=== PATIENT | female | born 1975 | race Caucasian/White ===

== ENCOUNTER 2021-08-19 06:39 | Day surgery (SDC) | payer BC ==
[~2021-08-19 06:39] MED LIST: Sodium Chloride 0.9% 10 ML SDV IV PRN; Sodium Chloride 0.9% 10 ML Syringe FLUSH PRN; Sodium Chloride 0.9% 2.5 ML Syringe FLUSH PRN; ceFAZolin 1 GM in Premix Bag 1 BAG IV ONE
[2021-08-19] MEDS ORDERED: Scopolamine 1.5 MG Transdermal Patch ONE (06:50)
[2021-08-19] MEDS ORDERED: Metoclopramide 10 MG/2 ML SDV IVPUSH PRN (06:53)
[2021-08-19] MEDS ORDERED: Naloxone 0.4 MG/ML SDV IVPUSH PRN (06:53)
[2021-08-19] MEDS ORDERED: Ondansetron 4 MG/2 ML SDV IVPUSH PRN ×2 (06:53→10:09)
[2021-08-19] MEDS ORDERED: Albuterol 0.083% 2.5 MG/3 ML Neb Soln NEB PRN (06:53)
[2021-08-19] MEDS ORDERED: fentaNYL 100 MCG/2 ML SDV IVPUSH PRN (06:53)
[2021-08-19] MEDS ORDERED: HYDROmorphone 1 MG/ML Syringe IVPUSH PRN (06:53)
[2021-08-19] MEDS ORDERED: Morphine 2 MG/ML SYRINGE IVPUSH PRN (06:53)
--- NOTE | 2021-08-19 07:26 | PCM.PREANE ---
Preanesthetic Assessment - Anesthesia/Transfusion/Family Hx Anesthesia History: Prior Anesthesia Without Reaction Transfusion History: Prior Transfusion Without Reaction Type of Transfusion Reactions: Reports: Other (see below) Other Type of Transfusion Reaction: iron infusions, last on 08/12/21 - Review of Systems General: No Symptoms Pulmonary: No Symptoms Cardiovascular: No Symptoms Gastrointestinal: No Symptoms Neurological: No Symptoms Other: Reports: None - Physical Assessment NPO Status Date: 08/19/21 NPO Status Time: 00:00 Height: 5 ft 4.5 in Weight: 204 lb ASA Class: 2 Mental Status: Alert & Oriented x3 Airway Class: Mallampati = 2 Dentition: Reports: Normal Dentition Thyro-Mental Finger Breadths: 3 Mouth Opening Finger Breadths: 3 ROM/Head Extension: Full Lungs: Clear to Auscultation, Normal Respiratory Effort Cardiovascular: Regular Rate, Regular Rhythm - Lab Values: Laboratory Last Values SARS-CoV-2 RNA (AJ) NEGATIVE (NEGATIVE) 08/19/21 06:10 - Allergies Allergies/Adverse Reactions: Allergies Allergy/AdvReac Type Severity Reaction Status Date / Time No Known Allergies Allergy Verified 08/15/21 08:15 - Acknowledgements Anesthesia Type Planned: General Anesthesia Pt an Appropriate Candidate for the Planned Anesthesia: Yes Alternatives and Risks of Anesthesia Discussed w Pt/Guardian: Yes Pt/Guardian Understands and Agrees with Anesthesia Plan: Yes PreAnesthesia Questionnaire HEENT History: Reports: Other (See Below) Other HEENT History: wears glasses Cardiovascular History: Reports: Hypertension Respiratory History: Reports: None Gastrointestinal History: Reports: None Genitourinary History: Reports: UTI, Recurrent [employer] History: Reports: Fibroids, Polycystic Ovaries, Musculoskeletal History: Reports: None Neurological History: Reports: Migraines Psychiatric History: Reports: None Endocrine/Metabolic History: Reports: Obesity/BMI 30+, Other (See Below) Other Endocrine/Metabolic History: "prediabetic" Hematologic History: Reports: Iron Deficiency Immunologic History: Reports: None Oncologic (Cancer) History: Reports: None Dermatologic History: Reports: None - Past Surgical History Head Surgeries/Procedures: Reports: None HEENT Surgical History: Reports: None Cardiovascular Surgical History: Reports: None Respiratory Surgical History: Reports: None GI Surgical History: Reports: None Female Surgical History: Reports: Section, Tubal Ligation Endocrine Surgical History: Reports: None Neurological Surgical History: Reports: None Musculoskeletal Surgical History: Reports: Other (See Below) Other Musculoskeletal Surgeries/Procedures:: excision of ganglion cyst-left wrist Oncologic Surgical History: Reports: None Dermatological Surgical History: Reports: None - SUBSTANCE USE Tobacco Use Status *Q: Former Tobacco User Tobacco Use Within Last Twelve Months: No - HOME MEDS Home Medications: Home Meds Acetaminophen [Tylenol] 2 tab PO ASDIRECTED PRN 08/15/21 [History] Lisinopril/Hydrochlorothiazide [Lisinopril-Hctz 20-25 mg Tab] 1 tab PO DAILY 08/15/21 [History] Metoprolol Tartrate 50 mg PO BID 08/15/21 [History] - CURRENT (IN HOUSE) MEDS Current Meds: Current Medications Albuterol (Albuterol 0.083% 2.5 Mg/3 Ml Neb Soln) 2.5 mg NEB ONETIME PRN PRN Reason: Wheezing Droperidol (Droperidol 5 Mg/2 Ml Sdv) 0.625 mg IVPUSH ONETIME PRN PRN Reason: Nausea/Vomiting Fentanyl (Fentanyl 100 Mcg/2 Ml Sdv) 50 mcg IVPUSH Q5M PRN PRN Reason: Pain (mild 1-3) Hydromorphone HCl (Hydromorphone 1 Mg/Ml Syringe) 1 mg IVPUSH Q10M PRN PRN Reason: Pain (moderate 4-6) Metoclopramide HCl (Metoclopramide 10 Mg/2 Ml Sdv) 10 mg IVPUSH ONETIME PRN PRN Reason: Nausea/Vomiting Morphine Sulfate (Morphine 2 Mg/Ml Syringe) 2 mg IVPUSH Q10M PRN PRN Reason: Pain (severe 7-10) Naloxone HCl (Naloxone 0.4 Mg/Ml Sdv) 0.1 mg IVPUSH ASDIRECTED PRN PRN Reason: Respiratory Depression Ondansetron HCl (Ondansetron 4 Mg/2 Ml Sdv) 4 mg IVPUSH ONETIME PRN PRN Reason: Nausea/Vomiting Sodium Chloride (Sodium Chloride 0.9% 10 Ml Syringe) 10 ml FLUSH ASDIRECTED PRN PRN Reason: Keep Vein Open Sodium Chloride (Sodium Chloride 0.9% 2.5 Ml Syringe) 2.5 ml FLUSH ASDIRECTED PRN PRN Reason: Keep Vein Open Sodium Chloride (Sodium Chloride 0.9% 10 Ml Sdv) 10 ml IV ASDIRECTED PRN PRN Reason: IV Use Discontinued Medications Cefazolin Sodium/Dextrose 1 gm (/ Premix) 50 mls @ 100 mls/hr IV ONETIME ONE Stop: 08/19/21 05:29 Scopolamine (Scopolamine 1.5 Mg Transdermal Patch) Confirm Administered Dose 1.5 mg .ROUTE .STK-MED ONE Stop: 08/19/21 06:51
[2021-08-19 07:34] LABS: BLOOD UREA NITROGEN,BUN 13 mg/dL (7.0-18.0); CARBON DIOXIDE,CO2 24.9 mmol/L (21.0-32.0); CHLORIDE,CL 102 mmol/L (98-107); GLUCOSE RANDOM 324 mg/dL (74-106); POTASSIUM,K 3.8 mmol/L (3.5-5.1); SODIUM,NA 138 mmol/L (136-145)
[2021-08-19] MEDS ORDERED: Octyl 2-Cyanoacrylate 1 Tube ONE (07:40)
[2021-08-19] MEDS ORDERED: Methylene Blue 50 MG/10 ML Ampule ONE (07:40)
[2021-08-19] MEDS ORDERED: Fluorescein 5 ML Vial ONE (07:40)
[2021-08-19] MEDS ORDERED: Bupivacaine 0.25% 10 ML SDV ONE (07:40)
[2021-08-19] MEDS ORDERED: Propofol 200 MG/20 ML SDV ONE (07:42)
[2021-08-19] MEDS ORDERED: fentaNYL 100 MCG/2 ML SDV ONE ×2 (07:42→09:55)
[2021-08-19] MEDS ORDERED: Rocuronium Bromide 50 MG/5 ML Syringe ONE ×2 (07:42→08:57)
[2021-08-19] MEDS ORDERED: Dexmedetomidine 200 MCG/2 ML SDV ONE (07:42)
[2021-08-19] MEDS ORDERED: Sugammadex Sodium 200 MG/2 ML VIAL ONE (07:42)
[2021-08-19] MEDS ORDERED: Lidocaine 2% 5 ML SDV ONE (07:42)
[2021-08-19] MEDS ORDERED: Midazolam 1 MG/ML 2 ML SDV ONE (07:42)
[2021-08-19] MEDS ORDERED: Dexamethasone 4 MG/ML 5 ML MDV ONE (07:42)
[2021-08-19] MEDS ORDERED: Ondansetron 4 MG/2 ML SDV ONE (07:42)
[2021-08-19] MEDS ORDERED: Ketorolac 30 MG/ML SDV ONE (07:42)
[2021-08-19] MEDS ORDERED: Sodium Chloride 0.9% 20 ML ONE (07:45)
[2021-08-19] MEDS ORDERED: Ketamine 500 mg/10 ML MDV ONE (08:29)
[2021-08-19] MEDS ORDERED: Furosemide 40 MG/4 ML VIAL ONE (09:36)
[2021-08-19] MEDS ORDERED: Ketorolac 30 MG/ML SDV IVPUSH PRN (10:09)
[2021-08-19] MEDS ORDERED: Promethazine 25 MG/ML SDV IM PRN (10:09)
[2021-08-19] MEDS ORDERED: Morphine 4 MG/ML Syringe IVPUSH PRN (10:09)
[2021-08-19] MEDS ORDERED: Ketorolac 30 MG/ML SDV IVPUSH ONE (10:09)
[2021-08-19] MEDS ORDERED: Belladonna Alkaloids/Opium 16.2-30 MG Supp RECTAL PRN (10:09)
--- NOTE | 2021-08-19 10:25 | PCM.OPNOTE ---
- General Post-Op/Procedure Note Date of Surgery/Procedure: 08/19/21 Operative Procedure(s): LAVH/RSO/left salpingectomy/cystoscopy Findings: Boggy enlarged uterus--severe right sided pelvic congestion with dilated vessels. Normal appearing right ovary, left with multiple adhesions and congestion. Bilateral patent ureters. Pre Op Diagnosis: Menometrorrhagia Post-Op Diagnosis: Same Anesthesia Technique: General ET Tube Primary Surgeon: Elvira Blackwell Diversional Therapist'S Assistant: Georgette Moore Pathology: uterus, bilateral fallopian tubes, right ovary Fluid Replacement, Intraop: 1,200 EBL in mLs: 150 Complications: none known Condition: Stable Free Text/Narrative:: Dictation [id number]
--- NOTE | 2021-08-19 10:58 | PCM.POSTAN ---
POST ANESTHESIA ASSESSMENT - MENTAL STATUS Mental Status: Oriented, Somnolent - VITAL SIGNS Vital Signs: Last Vital Signs Temp 97.5 F 08/19/21 10:10 Pulse 92 08/19/21 10:55 Resp 17 08/19/21 10:55 BP 153/82 H 08/19/21 10:55 Pulse Ox 96 08/19/21 10:55 - RESPIRATORY Respiratory Status: Respiratory Rate WNL, Airway Patent, O2 Saturation Stable - CARDIOVASCULAR CV Status: Pulse Rate WNL, Blood Pressure Stable - GASTROINTESTINAL GI Status: No Symptoms - POST OP HYDRATION Hydration Status: Adequate & Stable
--- NOTE | 2021-08-19 11:01 | PCM48HPAN ---
Post Anesthesia Note - EVALUATION WITHIN 48HRS OF ANESTHETIC Vital Signs in Normal Range: Yes Patient Participated in Evaluation: Yes Respiratory Function Stable: Yes Airway Patent: Yes Cardiovascular Function Stable: Yes Hydration Status Stable: Yes Pain Control Satisfactory: Yes Nausea and Vomiting Control Satisfactory: Yes Mental Status Recovered: Yes Vital Signs: Last Vital Signs Temp 97.5 F 08/19/21 10:10 Pulse 92 08/19/21 10:55 Resp 17 08/19/21 10:55 BP 153/82 H 08/19/21 10:55 Pulse Ox 96 08/19/21 10:55
[2021-08-19] MEDS: Simethicone 80 MG Tab.Chew PO SCH ×2 (14:56→16:42)
[2021-08-19] MEDS: Acetaminophen/oxyCODONE 325-5 MG Tab PO PRN ×2 (15:13→20:13)
--- NOTE | 2021-08-19 17:02 | OR ---
SURGEON: Elvira Blackwell M.D. DATE OF PROCEDURE: 08/19/2021 PREOPERATIVE DIAGNOSIS: Menometrorrhagia. POSTOPERATIVE DIAGNOSIS: Menometrorrhagia. PROCEDURES: Laparoscopic-assisted vaginal hysterectomy, right salpingo-oophorectomy, left salpingectomy, and cystoscopy. PRIMARY SURGEON: Elvira Blackwell M.D. MONUMENT CARVER: MD Oscar ANESTHESIA: General endotracheal anesthesia. FLUIDS: 1200 mL of crystalloid. ESTIMATED BLOOD LOSS: 150 mL. COMPLICATIONS: None known. FINDINGS: Boggy enlarged uterus. Severe right-sided pelvic congestion with dilated vessels. Right ovarian adhesions. Normal-appearing bladder with patent ureters visualized on cystoscopy. DISPOSITION: The patient to PACU. SPECIMENS: To Pathology. PROCEDURE DETAILS: Lindsay is a 45-year-old female who has had ongoing difficulty with menometrorrhagia. At the time of first evaluation, endometrial biopsy was benign. Pap was normal. Her hemoglobin was found to be 7.5, therefore, she underwent iron transfusions, and we were able to normalize her hemoglobin to 12. She is ready to proceed with definitive intervention from hysterectomy. Risks of procedure have been discussed. Proper consent obtained. She does have intermittent pelvic pain. It is fairly severe at times. It tends to be more left-sided, so the discussion was to look at the left side and perhaps remove the left ovary. However, we left the consent open-ended as because if one side appears visually quite worse than the other, of course we will remove the more abnormal side, but we will try to maintain 1 ovary for hormone purposes. Proper consent was obtained. Patient was taken to the operating room, was placed in dorsal supine position, and underwent general endotracheal anesthesia. She was then replaced into a modified dorsal lithotomy position, was prepped and draped in the usual sterile manner. SCDs to the lower extremities. Sahni to gravity, and bladder was backfilled with methylene blue. Arms were tucked. A time-out was performed. A speculum was introduced in vagina. Anterior lip of cervix was grasped with a tenaculum. A HUMI uterine manipulator was now gently placed. Balloon insufflated. All instruments other than the manipulator were now removed from the vagina. Gloves changed. Attention turned abdominally. Infraumbilically, 0.25% Marcaine was introduced, and a 5 mm infraumbilical incision was created in midline sagittal, and anterior abdominal wall tented upwards while long Veress needle was introduced into the abdominal cavity. Saline hanging drop test was performed. Pneumoperitoneum was achieved. Veress needle was removed. Trocar was introduced. Laparoscope and peritoneal contents were identified. Right and left lower quadrant trocars were now introduced under direct visualization after prepping these regions with 0.25% Marcaine and creating 5 mm skin incisions. The uterus was mobile, and it was slightly enlarged and bulky. The left tube and ovary appeared normal. Overall, the tubes has had a previous partial salpingectomy. However, the right side of the pelvis was very congested with ovarian adhesions noted. Therefore, given our previous discussion, I am opting to remove the right ovary and tube and to leave the left ovary as this appeared to be more normal. I was able to see ureters peristalsing deep in the pelvis well away from operative field. Attention was turned to the patient's left side. The left fallopian tube was now excised to the level of the cornua using LigaSure and then secured the utero- tuboovarian pedicle down through the broad ligament, then through the broad ligament incorporating the round ligament, and down the level of the cardinal pedicle. I was able to secure through the cardinal pedicle with LigaSure, cauterize and transect. Anteriorly, the peritoneum was now dissected with LigaSure, and bladder was mobilized away from lower uterine segment and cervix. Attention now turned to the patient's right side with care due to the pelvic congestion. I was able to isolate the tubo-ovarian complex. Using LigaSure, I was able to secure the infundibulopelvic ligament, cauterize and transect through the level of the broad ligament, down through the round ligament, to the base of the broad ligament, and to the cardinal ligament. Hydrodissection was performed to mobilize the bladder further away from the lower uterine segment, cervix, and then the remainder of pedicle on the right side was able to be secured using LigaSure. At this juncture, I was able to release pneumoperitoneum. Laparoscopic instruments were removed other than the trocars. Attention was turned vaginally. The patient's hips and knees were flexed. I did have to slightly reposition her on the table to bring the buttocks down further. She tolerated this well. I was able to introduce a weighted speculum, anterior Ana, and sidewall retractors. Cervix was grasped with a Dede clamp. The cervix was circumscribed with Bovie cautery. The posterior aspect of the cervix at this time did not mobilize easily. A second Dede clamp was placed and tented this down. I was able to circumscribed this mucosa as well. Posteriorly, the mucosa was dissected away from underlying peritoneum. Peritoneum was tented downwards and entered sharply. Longer weighted speculum was replaced with shorter. Anteriorly, the peritoneum was tented upwards and entered sharply. The Ana was placed to mobilize the bladder away from operative field, and the bladder was drained. Uterosacral ligament on either side was secured with Cindy clamp, transected, and suture ligated with 2-0 Vicryl. A further pedicle on the left side was able to be secured, transected, and suture ligated. Two further pedicles on the right side were able to be secured, transected, and suture ligated. At this point, the uterus was free and upon trying to remove from the pelvis did not easily deliver, did have to morcellate the posterior aspect of the uterus in order to allow the uterus to be delivered through the pelvis. The specimen would be sent to Pathology for further analysis. It included the right tube and ovary, the left fallopian tube, uterus, and cervix. A packing lap was now gently placed. Pedicles were inspected. The uterosacral ligaments on either side were secured to the vaginal apex with 2-0 Vicryl. The pedicles appeared hemostatic. Pack was now removed. The cuff was closed using 0 Vicryl in continuous running locked fashion. Hemostasis appeared evident. Sahni balloon was now deflated, and Sahni catheter was removed. Cystoscope was introduced using normal saline as distention media. I was able to visualize the dome of the bladder, followed by the trigone. IV fluorescein had been introduced in the right ureteral orifice followed by the left ureteral orifice, which were able to be visualized, and fluorescein-dyed urine was seen streaming from them with good jets helping to ensure ureteral patency. The bladder was now drained. The Sahni catheter was replaced. Cystoscope had been removed. The vaginal cuff once again inspected, found to be hemostatic. Gloves changed. Attention turned abdominally. Pneumoperitoneum once again achieved. The pelvis was closely inspected along with the pedicles. Region was well irrigated and suction dried. Pedicles appeared hemostatic. Relief pressure decreased to 8 mmHg. Hemostasis appeared evident. Therefore, pneumoperitoneum was able to be released. Laparoscopic instruments removed followed by removal of trocars at the right and left lower quadrant under direct visualization followed by removal of laparoscope and infraumbilical trocar. Skin edges were reapproximated using 3-0 Monocryl in subcuticular fashion. Sponge, instrument, and needle counts were correct x2. The patient tolerated the procedure well overall. She will go to PACU in stable condition. Specimen to Pathology. STUART / SCARLETT /[id number]
--- NOTE | 2021-08-19 17:57 | PCM.SN.2 ---
- Free Text/Narrative Note: Patient is doing well overall. Explained procedure and intraoperative findings. Blood pressure mildly elevated, will monitor--otherwise VS are stable and urine output is good. Continue postoperative cares. Time Documentation
[2021-08-19] MEDS: Docusate Sodium 100 MG Cap PO SCH (20:09)
[2021-08-20] MEDS: Acetaminophen/oxyCODONE 325-5 MG Tab PO PRN ×2 (01:23→08:30)
[2021-08-20] MEDS: Simethicone 80 MG Tab.Chew PO SCH (06:38)
[2021-08-20 07:27] LABS: BLOOD UREA NITROGEN,BUN 14 mg/dL (7.0-18.0); CARBON DIOXIDE,CO2 24.6 mmol/L (21.0-32.0); CHLORIDE,CL 104 mmol/L (98-107); GLUCOSE RANDOM 265 mg/dL (74-106); POTASSIUM,K 3.9 mmol/L (3.5-5.1); SODIUM,NA 138 mmol/L (136-145)
[2021-08-20] MEDS: Docusate Sodium 100 MG Cap PO SCH (08:32)
--- NOTE | 2021-08-20 10:10 | PCM.SURGPN ---
- General Info Date of Service: 08/20/21 POD#: 1 Functional Status: Reports: Pain Controlled, Tolerating Diet, Ambulating, Urinating - Review of Systems General: Denies: Fever, Weakness, Fatigue Pulmonary: Denies: Shortness of Breath Cardiovascular: Denies: Chest Pain, Palpitations, Lightheadedness Gastrointestinal: Reports: Abdominal Pain (mild). Denies: Nausea, Vomiting Genitourinary: Reports: No Symptoms Musculoskeletal: Reports: No Symptoms Skin: Reports: No Symptoms Neurological: Reports: No Symptoms Psychiatric: Reports: No Symptoms - Patient Data Vitals - Most Recent: Last Vital Signs Temp 36.6 C 08/20/21 08:00 Pulse 118 H 08/20/21 08:00 Resp 12 08/20/21 08:00 BP 169/85 H 08/20/21 08:00 Pulse Ox 97 08/20/21 08:00 Weight - Most Recent: 92.533 kg I&O - Last 24 Hours: Intake & Output 08/19/21 08/20/21 08/20/21 22:59 06:59 14:59 Intake Total 240 950 Output Total 1300 1550 Balance -1060 -600 Lab Results Last 24 Hrs: Laboratory Results - last 24 hr 08/20/21 08/20/21 Range/Units 06:55 06:55 WBC 11.58 H (4.0-11.0) K/uL RBC 4.33 (4.30-5.90) M/uL Hgb 10.8 L (12.0-16.0) g/dL Hct 34.5 L (36.0-46.0) % MCV 79.7 L (80.0-98.0) fL MCH 24.9 L (27.0-32.0) pg MCHC 31.3 (31.0-37.0) g/dL Plt Count 194 (150-400) K/uL Neut % (Auto) 70.8 (48.0-80.0) % Lymph % (Auto) 21.2 (16.0-40.0) % [place] % (Auto) 6.9 (0.0-15.0) % Eos % (Auto) 1.0 (0.0-7.0) % Baso % (Auto) 0.1 (0.0-1.5) % Neut # (Auto) 8.2 H (1.4-5.7) K/uL Lymph # (Auto) 2.5 H (0.6-2.4) K/uL Platte # (Auto) 0.8 (0.0-0.8) K/uL Eos # (Auto) 0.1 (0.0-0.7) K/uL Baso # (Auto) 0.0 (0.0-0.1) K/uL Nucleated RBC % 0.0 /100WBC Nucleated RBCs # 0 K/uL Sodium 138 (136-145) mmol/L Potassium 3.9 (3.5-5.1) mmol/L Chloride 104 (98-107) mmol/L Carbon Dioxide 24.6 (21.0-32.0) mmol/L BUN 14 (7.0-18.0) mg/dL Creatinine 0.6 (0.6-1.0) mg/dL Est Cr Clr Drug Dosing 103.30 mL/min Estimated GFR (MDRD) > 60.0 ml/min Glucose 265 H (74-106) mg/dL Calcium 7.8 L (8.5-10.1) mg/dL Med Orders - Current: Current Medications Belladonna Alkaloids/Opium (Belladonna Alkaloids/Opium 16.2-30 Mg Supp) 1 supp RECTAL Q4H PRN PRN Reason: Abdominal Pain Docusate Sodium (Docusate Sodium 100 Mg Cap) 100 mg PO BID LAURY Last Admin: 08/20/21 08:32 Dose: 100 mg Documented by: Ketorolac Tromethamine (Ketorolac 30 Mg/Ml Sdv) 30 mg IVPUSH Q6H PRN PRN Reason: Pain (severe 7-10) Stop: 08/24/21 10:09 Morphine Sulfate (Morphine 4 Mg/Ml Syringe) 4 mg IVPUSH Q2H PRN PRN Reason: Pain (severe 7-10) Last Admin: 08/19/21 12:14 Dose: 4 mg Documented by: Ondansetron HCl (Ondansetron 4 Mg/2 Ml Sdv) 4 mg IVPUSH Q6H PRN PRN Reason: Nausea/Vomiting Oxycodone/Acetaminophen (Acetaminophen/Oxycodone 325-5 Mg Tab) 1 tab PO Q4H PRN PRN Reason: Pain (moderate 4-6) Last Admin: 08/20/21 08:30 Dose: 1 tab Documented by: Oxycodone/Acetaminophen (Acetaminophen/Oxycodone 325-5 Mg Tab) 2 tab PO Q4H PRN PRN Reason: Pain (moderate 4-6) Last Admin: 08/20/21 01:23 Dose: 2 tab Documented by: Promethazine HCl (Promethazine 25 Mg/Ml Sdv) 25 mg IM Q6H PRN PRN Reason: Nausea/Vomiting Simethicone (Simethicone 80 Mg Tab.Chew) 80 mg PO TIDAC LAURY Last Admin: 08/20/21 06:38 Dose: 80 mg Documented by: Sodium Chloride (Sodium Chloride 0.9% 10 Ml Syringe) 10 ml FLUSH ASDIRECTED PRN PRN Reason: Keep Vein Open Sodium Chloride (Sodium Chloride 0.9% 2.5 Ml Syringe) 2.5 ml FLUSH ASDIRECTED PRN PRN Reason: Keep Vein Open Sodium Chloride (Sodium Chloride 0.9% 10 Ml Sdv) 10 ml IV ASDIRECTED PRN PRN Reason: IV Use Discontinued Medications Albuterol (Albuterol 0.083% 2.5 Mg/3 Ml Neb Soln) 2.5 mg NEB ONETIME PRN PRN Reason: Wheezing Bupivacaine HCl (Bupivacaine 0.25% 10 Ml Sdv) Confirm Administered Dose 10 ml .ROUTE .STK-MED ONE Stop: 08/19/21 07:41 Dexamethasone (Dexamethasone 4 Mg/Ml 5 Ml Mdv) Confirm Administered Dose 20 mg .ROUTE .STK-MED ONE Stop: 08/19/21 07:43 Dexmedetomidine HCl (Dexmedetomidine 200 Mcg/2 Ml Sdv) Confirm Administered Dose 200 mcg .ROUTE .STK-MED ONE Stop: 08/19/21 07:43 Droperidol (Droperidol 5 Mg/2 Ml Sdv) 0.625 mg IVPUSH ONETIME PRN PRN Reason: Nausea/Vomiting Fentanyl (Fentanyl 100 Mcg/2 Ml Sdv) 50 mcg IVPUSH Q5M PRN PRN Reason: Pain (mild 1-3) Fentanyl (Fentanyl 100 Mcg/2 Ml Sdv) Confirm Administered Dose 100 mcg .ROUTE .STK-MED ONE Stop: 08/19/21 07:43 Fentanyl (Fentanyl 100 Mcg/2 Ml Sdv) Confirm Administered Dose 100 mcg .ROUTE .STK-MED ONE Stop: 08/19/21 09:56 Fluorescein Sodium (Fluorescein 5 Ml Vial) Confirm Administered Dose 5 ml .ROUTE .STK-MED ONE Stop: 08/19/21 07:41 Furosemide (Furosemide 40 Mg/4 Ml Vial) Confirm Administered Dose 40 mg .ROUTE .STK-MED ONE Stop: 08/19/21 09:37 Hydromorphone HCl (Hydromorphone 1 Mg/Ml Syringe) 1 mg IVPUSH Q10M PRN PRN Reason: Pain (moderate 4-6) Last Admin: 08/19/21 11:03 Dose: 1 mg Documented by: Cefazolin Sodium/Dextrose 1 gm (/ Premix) 50 mls @ 100 mls/hr IV ONETIME ONE Stop: 08/19/21 05:29 Last Admin: 08/19/21 12:41 Dose: Not Given Documented by: Acetaminophen (Ofirmev 1000 Mg/100 Ml) Confirm Administered Dose 100 mls @ as directed .ROUTE .STK-MED ONE Stop: 08/19/21 07:43 Sodium Chloride (Normal Saline) Confirm Administered Dose 20 mls @ as directed .ROUTE .STK-MED ONE Stop: 08/19/21 07:46 Cefazolin Sodium/Dextrose (Ancef 2 Gm/50 Ml) Confirm Administered Dose 50 mls @ as directed .ROUTE .STK-MED ONE Stop: 08/19/21 08:06 Ketamine HCl (Ketamine 500 Mg/10 Ml Mdv) Confirm Administered Dose 500 mg .ROUTE .STK-MED ONE Stop: 08/19/21 08:30 Ketorolac Tromethamine (Ketorolac 30 Mg/Ml Sdv) Confirm Administered Dose 30 mg .ROUTE .STK-MED ONE Stop: 08/19/21 07:43 Ketorolac Tromethamine (Ketorolac 30 Mg/Ml Sdv) 30 mg IVPUSH ONETIME ONE Stop: 08/19/21 10:10 Last Admin: 08/19/21 12:42 Dose: Not Given Documented by: Lidocaine (Lidocaine 2% 5 Ml Sdv) Confirm Administered Dose 5 ml .ROUTE .STK-MED ONE Stop: 08/19/21 07:43 Methylene Blue (Methylene Blue 50 Mg/10 Ml Ampule) Confirm Administered Dose 50 mg .ROUTE .STK-MED ONE Stop: 08/19/21 07:41 Metoclopramide HCl (Metoclopramide 10 Mg/2 Ml Sdv) 10 mg IVPUSH ONETIME PRN PRN Reason: Nausea/Vomiting Midazolam HCl (Midazolam 1 Mg/Ml 2 Ml Sdv) Confirm Administered Dose 2 mg .ROUTE .STK-MED ONE Stop: 08/19/21 07:43 Morphine Sulfate (Morphine 2 Mg/Ml Syringe) 2 mg IVPUSH Q10M PRN PRN Reason: Pain (severe 7-10) Naloxone HCl (Naloxone 0.4 Mg/Ml Sdv) 0.1 mg IVPUSH ASDIRECTED PRN PRN Reason: Respiratory Depression Octyl Cyanoacrylate (Octyl 2-Cyanoacrylate 1 Tube) Confirm Administered Dose 1 applic .ROUTE .STK-MED ONE Stop: 08/19/21 07:41 Ondansetron HCl (Ondansetron 4 Mg/2 Ml Sdv) 4 mg IVPUSH ONETIME PRN PRN Reason: Nausea/Vomiting Ondansetron HCl (Ondansetron 4 Mg/2 Ml Sdv) Confirm Administered Dose 4 mg .ROUTE .STK-MED ONE Stop: 08/19/21 07:43 Propofol (Propofol 200 Mg/20 Ml Sdv) Confirm Administered Dose 200 mg .ROUTE .STK-MED ONE Stop: 08/19/21 07:43 Rocuronium Turrell (Rocuronium Turrell 50 Mg/5 Ml Syringe) Confirm Administered Dose 50 mg .ROUTE .STK-MED ONE Stop: 08/19/21 07:43 Rocuronium Turrell (Rocuronium Turrell 50 Mg/5 Ml Syringe) Confirm Administered Dose 50 mg .ROUTE .STK-MED ONE Stop: 08/19/21 08:58 Scopolamine (Scopolamine 1.5 Mg Transdermal Patch) Confirm Administered Dose 1.5 mg .ROUTE .STK-MED ONE Stop: 08/19/21 06:51 Last Admin: 08/19/21 07:39 Dose: 1.5 mg Documented by: Sugammadex Sodium (Sugammadex Sodium 200 Mg/2 Ml Vial) Confirm Administered Dose 200 mg .ROUTE .STK-MED ONE Stop: 08/19/21 07:43 - Exam General: Alert, Oriented Lungs: Normal Respiratory Effort Cardiovascular: Regular Rate, Regular Rhythm GI/Abdominal Exam: Soft Extremities: Pedal Edema (trace). No: Minor's Sign Skin: Warm, Dry, Intact Psy/Mental Status: Alert, Normal Affect, Normal Mood Sepsis Event Note - Evaluation Sepsis Screening Result: No Definite Risk - Focused Exam Vital Signs: Vital Signs Temp Pulse Resp BP Pulse Ox 08/20/21 08:00 36.6 C 118 H 12 169/85 H 97 08/20/21 05:09 36.4 C 113 H 16 141/70 H 95 08/20/21 00:00 36.6 C 113 H 14 168/76 H 97 - Problem List & Annotations (1) Status post laparoscopic assisted vaginal hysterectomy (LAVH) SNOMED Code(s): 471913218, 01286347, 034677586 Code(s): Z90.710 - ACQUIRED ABSENCE OF BOTH CERVIX AND UTERUS Status: Acute Current Visit: Yes - Problem List Review Problem List Initiated/Reviewed/Updated: Yes - My Orders Last 24 Hours: Active Orders 24 hr Category Date Time Status Patient Status [ADT] Routine ADT 08/19/21 10:09 Active Antiembolic Devices [RC] PER UNIT ROUTINE Care 08/19/21 10:10 Active Notify Provider Intake and Out [RC] ASDIRECTED Care 08/19/21 10:09 Active Notify Provider Vital Signs [RC] ASDIRECTED Care 08/19/21 10:09 Active Oxygen Therapy [RC] ASDIRECTED Care 08/19/21 10:09 Active RT Incentive Spirometry [RC] Q2HWA Care 08/19/21 10:09 Active Ready for Discharge [RC] PER UNIT ROUTINE Care 08/20/21 10:06 Ordered Up With Assistance [RC] PER UNIT ROUTINE Care 08/19/21 10:09 Active Up ad Tatyana [RC] PER UNIT ROUTINE Care 08/19/21 10:09 Active Urinary Catheter Removal [RC] Per Unit Routine Care 08/19/21 10:09 Active Vital Signs [RC] PER UNIT ROUTINE Care 08/19/21 10:09 Active Regular Diet [DIET] Diet 08/19/21 Lunch Active Acetaminophen/oxyCODONE [Percocet 325-5 MG] Med 08/19/21 10:09 Active 1 tab PO Q4H PRN Acetaminophen/oxyCODONE [Percocet 325-5 MG] Med 08/19/21 10:09 Active 2 tab PO Q4H PRN Belladonna/Opium [B & O Supprettes No. 15A] Med 08/19/21 10:09 Active 1 supp RECTAL Q4H PRN Docusate Sodium [Colace] Med 08/19/21 21:00 Active 100 mg PO BID Ketorolac [Toradol] Med 08/19/21 10:09 Active 30 mg IVPUSH Q6H PRN Morphine Med 08/19/21 10:09 Active 4 mg IVPUSH Q2H PRN Ondansetron [Zofran] Med 08/19/21 10:09 Active 4 mg IVPUSH Q6H PRN Promethazine [Phenergan] Med 08/19/21 10:09 Active 25 mg IM Q6H PRN Simethicone Med 08/19/21 11:30 Active 80 mg PO TIDAC Peripheral IV Discontinue [OM.PC] Routine Oth 08/19/21 10:09 Ordered Sequential Compression Device [OM.PC] Per Unit Routine Oth 08/19/21 10:09 Ordered Resuscitation Status Routine Resus Stat 08/19/21 10:09 Ordered Medication Orders Belladonna Alkaloids/Opium (Belladonna Alkaloids/Opium 16.2-30 Mg Supp) 1 supp RECTAL Q4H PRN PRN Reason: Abdominal Pain Docusate Sodium (Docusate Sodium 100 Mg Cap) 100 mg PO BID LAURY Last Admin: 08/20/21 08:32 Dose: 100 mg Documented by: Admin: 08/19/21 20:09 Dose: 100 mg Documented by: LEA Ketorolac Tromethamine (Ketorolac 30 Mg/Ml Sdv) 30 mg IVPUSH Q6H PRN PRN Reason: Pain (severe 7-10) Stop: 08/24/21 10:09 Morphine Sulfate (Morphine 4 Mg/Ml Syringe) 4 mg IVPUSH Q2H PRN PRN Reason: Pain (severe 7-10) Last Admin: 08/19/21 12:14 Dose: 4 mg Documented by: LOI Ondansetron HCl (Ondansetron 4 Mg/2 Ml Sdv) 4 mg IVPUSH Q6H PRN PRN Reason: Nausea/Vomiting Oxycodone/Acetaminophen (Acetaminophen/Oxycodone 325-5 Mg Tab) 1 tab PO Q4H PRN PRN Reason: Pain (moderate 4-6) Last Admin: 08/20/21 08:30 Dose: 1 tab Documented by: Admin: 08/19/21 15:13 Dose: 1 tab Documented by: LOI Oxycodone/Acetaminophen (Acetaminophen/Oxycodone 325-5 Mg Tab) 2 tab PO Q4H PRN PRN Reason: Pain (moderate 4-6) Last Admin: 08/20/21 01:23 Dose: 2 tab Documented by: Admin: 08/19/21 20:13 Dose: 2 tab Documented by: LEA Promethazine HCl (Promethazine 25 Mg/Ml Sdv) 25 mg IM Q6H PRN PRN Reason: Nausea/Vomiting Simethicone (Simethicone 80 Mg Tab.Chew) 80 mg PO TIDAC LAURY Last Admin: 08/20/21 06:38 Dose: 80 mg Documented by: Admin: 08/19/21 16:42 Dose: 80 mg Documented by: Admin: 08/19/21 14:56 Dose: Not Given Documented by: JALEEL Sodium Chloride (Sodium Chloride 0.9% 10 Ml Syringe) 10 ml FLUSH ASDIRECTED PRN PRN Reason: Keep Vein Open Sodium Chloride (Sodium Chloride 0.9% 2.5 Ml Syringe) 2.5 ml FLUSH ASDIRECTED PRN PRN Reason: Keep Vein Open Sodium Chloride (Sodium Chloride 0.9% 10 Ml Sdv) 10 ml IV ASDIRECTED PRN PRN Reason: IV Use - Assessment Assessment (Free Text/Narrative):: POD 1 status post LAVH/left salpingectomy/RSO - Plan Plan (Free Text/Narrative):: Patient feels well--ambulating, voiding. Vaginal bleeding is scant. She would like to be discharged. She has her own home meds to take for her hypertension. She plans to stay in town today/[facility]. Discharge instructions reviewed. Follow up at [facility] 2 and 6 weeks.
== END 2021-08-20 10:50 | disposition home or self-care (01) ==
LOC: MW.SDS 06:39 → MW.MS 10:09 → MW.SDS 08-20 10:50
PROVIDERS: ATTEND Obstetrics & Gynecology
DX: N84.0 Polyp of corpus uteri (principal); N83.01 Follicular cyst of right ovary; I10 Essential (primary) hypertension; G43.909 Migraine, unspecified, not intractable, without status migrainosus; D25.9 Leiomyoma of uterus, unspecified; D50.9 Iron deficiency anemia, unspecified; E66.9 Obesity, unspecified; Z87.891 Personal history of nicotine dependence; Z01.812 Encounter for preprocedural laboratory examination; Z20.822 Contact with and (suspected) exposure to COVID-19; Z79.899 Other long term (current) drug therapy; Z98.890 Other specified postprocedural states; Z68.34 Body mass index [BMI] 34.0-34.9, adult
CPT/HCPCS: 36415; 58554; 80048; 84703; 85025; 85027; 86850; 86900; 86901; 87635; 88307; A9270; J0131; J0690; J1100; J1170; J1940; J2250; J2270; J2704; J3010; J3490; J7030; 00944; J1885; J2405; U0002